=== PATIENT | female | born 1955 | race Caucasian/White ===

== ENCOUNTER 2024-04-06 14:13 | Outpatient (CLI) | payer BC, OTHER | END 2024-04-06 14:14 | disposition home or self-care (01) | LOC: CSHMAMMO 14:13 | PROVIDERS: ATTEND Family Medicine | DX: Z12.31 Encounter for screening mammogram for malignant neoplasm of breast (principal); Z91.89 Other specified personal risk factors, not elsewhere classified | CPT/HCPCS: 77063; 77067 ==

== ENCOUNTER 2024-04-06 14:58 | Outpatient (CLI) | payer BC, OTHER | END 2024-04-06 14:59 | disposition home or self-care (01) | LOC: CSHRAD 14:58 | PROVIDERS: ATTEND Family Medicine | DX: I10 Essential (primary) hypertension (principal) | CPT/HCPCS: 71046 ==